=== PATIENT | female | born 1980 | race Two or more races ===

== ENCOUNTER 2019-06-09 17:40 | Inpatient (IN) | payer OTHER ==
[~2019-06-09] VITALS: Ht 157.5 cm; Wt 61.1 kg
[2019-06-09] MEDS ORDERED: SODIUM CHLORIDE 0.9% 1,000 ML IVB ONE (17:48)
[2019-06-09 18:15] LABS: Basophils # (auto) 0.1 10 ^3/uL (0-0.2); Basophils % (auto) 0.6 % (0.0-2.0); Eosinophils # (auto) 0 10 ^3/uL (0-0.8); Eosinophils % (auto) 0.2 % (0.0-7.0); Hematocrit 29.5 % (36.0-46.0); Hemoglobin 9.8 g/dL (12.2-16.2); Lymphocytes # (auto) 1.9 10 ^3/uL (0.4-5.4); Lymphocytes % (auto) 18.5 % (10.0-50.0); Mean Corpuscular Hemoglobin 28.8 pg (28.0-32.0); Mean Corpuscular Hgb Conc. 33.2 g/dL (32.0-36.0); Mean Corpuscular Volume 86.7 fL (80.0-100.0); Monocytes # (auto) 0.4 10 ^3/uL (0-1.3); Monocytes % (auto) 3.6 % (0.0-12.0); Neutrophils # (auto) 8.1 10 ^3/uL (1.6-8.6); Neutrophils % (auto) 77.1 % (37.0-80.0); Nucleated Red Blood Cells % 0.1 %; Platelet Count (auto) 373 10^3/uL (140-450); Red Blood Cells 3.41 10^6/uL (4.0-5.20); White Blood Cell 10.4 10^3/uL (4.4-10.8)
[2019-06-09] MEDS ORDERED: LABETALOL HCL 5 MG/ML 4ML SYRINGE IV ONE ×2 (18:15→20:00)
[2019-06-09 18:25] LABS: Albumin 1.9 g/dL (3.4-5.0); Anion Gap 15 (5-15); Blood Alcohol < 3.0 mg/dL (0-5); Blood Urea Nitrogen 17 mg/dL (7-18); Carbon Dioxide 20 mmol/L (21-32); Chloride 92 mmol/L (98-107); Magnesium 2.3 mg/dL (1.6-2.6); Potassium 3.3 mmol/L (3.5-5.1); Sodium 127 mmol/L (136-145)
[2019-06-09 18:29] LABS: INR 0.95 (0.9-1.15); Partial Thromboplastin Time 24.2 sec (23.64-32.05)
[2019-06-09 18:33] LABS: Alanine Aminotransferase 17 U/L (13-56); Alkaline Phosphatase 193 U/L (45-117); Aspartate Aminotransferase 18 U/L (15-37); BUN/Creatinine Ratio 10.4; Bilirubin, Total 0.3 mg/dL (0.2-1.0); GFR African American 45 mL/min; GFR Non-African American 37 mL/min; Total Protein 6.8 g/dL (6.4-8.2)
[2019-06-09 18:38] LABS: Glucose 811 mg/dL (74-106)
[2019-06-09 18:40] LABS: Urine Bacteria FEW /hpf (None Seen); Urine Blood TRACE /uL (Negative); Urine Specific Gravity 1.024 (1.001-1.035); Urine WBC 1 /hpf (0 - 5)
[2019-06-09 18:42] LABS: Alcohol, Urine < 3.0 mg/dL (0-5); Amphetamine Screen, Urine NEGATIVE (NEGATIVE); Barbiturate Scree,Urine NEGATIVE (NEGATIVE); Benzodiazephine Screen, Urine NEGATIVE (NEGATIVE); Cannabinoid Screen, Urine NEGATIVE (NEGATIVE); Cocaine Screen, Urine NEGATIVE (NEGATIVE); Opiate Scree,Urine NEGATIVE (NEGATIVE); Phencyclidine Screen, Urine NEGATIVE (NEGATIVE)
[2019-06-09 18:57] LABS: Lactic Acid w/Reflex 3.9 mmol/L (0.4-2.0)
[2019-06-09] MEDS ORDERED: InsuLIN REG 1unit/0.01ml Soln (100units/ml) IV ONE (19:00)
[2019-06-09] MEDS ORDERED: SODIUM CHLORIDE 0.9% 2,000 ML IV ONE (19:45)
[2019-06-09] MEDS ORDERED: cefTRIAXone 1GM/50ML D5W 50 ML IV ONE (19:45)
[2019-06-09] MEDS ORDERED: SODIUM CHLORIDE 0.9% 1,000 ML IV SCH ×2 (21:28→21:31)
[2019-06-09] MEDS ORDERED: DEXTROSE (50%) 50ML SYRG IV PRN ×2 (21:30→21:45)
[2019-06-09] MEDS ORDERED: TEMAZEPAM 15 MG CAP PO PRN (21:30)
[2019-06-09] MEDS ORDERED: cloNIDine HCL 0.1 MG TAB PO PRN (21:30)
[2019-06-09] MEDS ORDERED: POTASSIUM CHL 20MEQ/100ML 100 ML IV ONE (21:30)
[2019-06-09] MEDS ORDERED: NITROGLYCERIN 0.4 MG SL TAB SL PRN (21:30)
[2019-06-09] MEDS ORDERED: ONDANSETRON HCL 4 MG/2 ML VIAL IV PRN (21:30)
[2019-06-09] MEDS ORDERED: MORPHINE SULF INJ 2 MG/ML SYRINGE 1ML IV PRN (21:30)
[2019-06-09] MEDS ORDERED: InsuLIN R (HUMAN) 100 UNITS in SODIUM CHL 0.9% 99 ML IV SCH (21:31)
[2019-06-09] MEDS ORDERED: AZITHROMYCIN 500MG/D5WorNS 250ml IV SCH (22:00)
[2019-06-09] MEDS ORDERED: ACCU-CHEK COMFORT CURVE STRIP VI SCH (22:30)
[2019-06-09] MEDS: FAMOTIDINE 20 MG TAB PO SCH (23:00)
[2019-06-10] VITALS (7 sets, daily range): BP systolic 117–157; BP diastolic 70–95
[2019-06-10] MEDS: ACCU-CHEK COMFORT CURVE STRIP VI SCH ×7 (00:05→23:41)
--- NOTE | 2019-06-10 00:30 | NUR ---
Telemetry admit from ER COLETT[place] admitted to Telemetry unit. Patient oriented to ASAD DAMICO, RN primary RN, unit, room, bed, and unit policies regarding patient care and visiting hours. Patient now on continuous telemetry monitoring, tele box # 3 and telemetry reading on arrival to unit is sinus rhythm at 99 beats per minute. Patient weighed by bedscale and encouraged to call if they need something. All questions and concerns addressed, patient verbalized understanding. Bed in lowest locked position, side rails up x2, call light within reach. Will round every hour and as needed and continue to monitor.
[2019-06-10] MEDS: InsuLIN REG 1unit/0.01ml Soln (100units/ml) SC SCH ×7 (00:45→23:42)
[2019-06-10] MEDS ORDERED: SODIUM CHLORIDE 0.9% 1,000 ML IV SCH ×2 (01:31→03:31)
[2019-06-10] MEDS ORDERED: LISI40TA11 PO (02:09)
[2019-06-10] MEDS ORDERED: INSU1INJ27 SC (02:09)
--- NOTE | 2019-06-10 02:30 | NUR ---
Unable to obtain all ordered labs. Called lab, firestopper technician verbalized understanding. Will continue care.
[2019-06-10 03:02] LABS: Basophils # (auto) 0 10 ^3/uL (0-0.2); Basophils % (auto) 0.2 % (0.0-2.0); Eosinophils # (auto) 0 10 ^3/uL (0-0.8); Hematocrit 25.1 % (36.0-46.0); Hemoglobin 8.4 g/dL (12.2-16.2); Lymphocytes % (auto) 6.3 % (10.0-50.0); Mean Corpuscular Hemoglobin 28.4 pg (28.0-32.0); Mean Corpuscular Hgb Conc. 33.5 g/dL (32.0-36.0); Mean Corpuscular Volume 84.8 fL (80.0-100.0); Monocytes # (auto) 0.9 10 ^3/uL (0-1.3); Monocytes % (auto) 5.6 % (0.0-12.0); Neutrophils # (auto) 13.6 10 ^3/uL (1.6-8.6); Neutrophils % (auto) 87.9 % (37.0-80.0); Platelet Count (auto) 278 10^3/uL (140-450); Red Blood Cells 2.96 10^6/uL (4.0-5.20); White Blood Cell 15.5 10^3/uL (4.4-10.8)
[2019-06-10 03:17] LABS: Albumin 1.4 g/dL (3.4-5.0); BUN/Creatinine Ratio 13.3; Calcium 6.9 mg/dL (8.5-10.1); Potassium 3.1 mmol/L (3.5-5.1)
[2019-06-10 03:20] LABS: Bilirubin, Total 0.2 mg/dL (0.2-1.0); Total Protein 5.3 g/dL (6.4-8.2)
[2019-06-10 03:47] LABS: Magnesium 1.6 mg/dL (1.6-2.6)
[2019-06-10 03:56] LABS: CRP High Sensitivity 1.53 mg/dL (< 0.3)
--- NOTE | 2019-06-10 07:00 | NUR ---
Closing Note Patient lying in bed, eyes closed, respirations even and unlabored, appears asleep. Patient awakens to name and touch. Bed in lowest locked position, side rails up x2, call light within reach. Care endorsed to dayshift RN.
--- NOTE | 2019-06-10 07:00 | NUR ---
Potassium 3.1, regional operations director hospitalist hong, awaiting call back at this time. Addendum: 06/10/19 at 0712 by ASAD DAMICO RN RN ADDITION: Received return call from regional operations director hospitalist Ned Rosales NP, new order received for 40 mEq of Potassium PO one time dose. Order read back and verified, will implement as ordered and continue.
[2019-06-10] MEDS ORDERED: SOD CHL 0.9%/ KCL 20MEQ 1,000 ML IV SCH (07:30)
[2019-06-10] MEDS ORDERED: CALCIUM GLUC 4.65meq/50ml D5AE 50 ML IV ONE (07:30)
--- NOTE | 2019-06-10 07:30 | NUR ---
Opening Shift Note Assumed care of patient, awake and alert. No S/S of distress/SOB or pain. Bed in lowest and locked position with side rails up x2 and call light in reach. Instructed on POC and to call for assist PRN, will continue to monitor for changes Q1hr and PRN.
[2019-06-10] MEDS: FAMOTIDINE 20 MG TAB PO SCH ×2 (09:00→21:53)
[2019-06-10] MEDS ORDERED: POTASSIUM CHL 20 Meq TABLET PO ONE (09:00)
[2019-06-10] MEDS: LISINOPRIL 20 MG TAB PO SCH (09:01)
[2019-06-10] MEDS ORDERED: CHOLECALCIFEROL (VITD3) 1,000UNIT=25mCg TAB PO SCH (10:00)
[2019-06-10] MEDS ORDERED: ZINC SULFATE 220mg CAP or TAB PO SCH (10:00)
[2019-06-10] MEDS ORDERED: ASCORBIC ACID 1,000 MG TAB PO SCH (10:00)
--- NOTE | 2019-06-10 11:00 | NUR ---
PATIENT REQUESTING MEDICATION FOR PAIN. PATIENT STATED THAT SHE IS HAVING A "HEAD ACHE" RATED AT A 7/10. RN OFFERED NON-PHARMACOLOGICAL TREATMENT AND ALSO NOTIFIED THE PATIENT THAT THE ACETAMINOPHEN IS FOR PAIN RATED AT 1-3. PATIENT DENIED NON-PHARMACOLOGICAL TREATMENT AND STATED "THE TYLENOL SHOULD BE FINE FOR MY HEAD ACHE".
[2019-06-10] MEDS: ACETAMINOPHEN 325 MG TAB PO PRN ×3 (11:11→21:54)
--- NOTE | 2019-06-10 11:20 | NUR ---
CALLED AND NOTIFIED SENIOR ORACLE APPLICATIONS DEVELOPER, MARTINA, OF PATIENT NEGATIVE COVID RESULTS. CHARGE AWARE. THIS RN TO CALL MD AND NOTIFY MD.
--- NOTE | 2019-06-10 11:24 | NUR ---
PAGED DR. ESPINO REGARDING COVID-19 RESULTS.
--- NOTE | 2019-06-10 11:55 | NUR ---
RECEIVED CALL BACK FROM DR. ESPINO. RN UPDATED DR. ESPINO ON PATIENTS RESULTS. MD AWARE. PATIENT TO BE TRANSFERRED TO FLOOR.
--- NOTE | 2019-06-10 12:20 | NUR ---
REPORT GIVEN. RN GAVE REPORT TO RECEIVING MARKO RAMESH.
--- NOTE | 2019-06-10 12:50 | NUR ---
PATIENT TRANSFERRED TO ROOM 221A. PATIENT TRANSFERRED VIA WHEEL CHAIR WITH STAFF. NO S/S OF DISTRESS OR SOB AT THIS TIME. PATIENT TOOK ALL PERSONAL BELONGINGS.
--- NOTE | 2019-06-10 12:51 | NUR ---
Received patient to Room 221A. Patient is alert and oriented. Patient has no complaints at this time. Call light in reach. Will continue to monitor.
[2019-06-10] MEDS ORDERED: LORazepam 2MG/ML-1ML VIAL IV PRN (14:30)
[2019-06-10] MEDS ORDERED: amLODIPine BESYLATE 5 MG TAB PO ONE (19:15)
[2019-06-10] MEDS ORDERED: cefTRIAXone 1GM/50ML D5W 50 ML IV SCH (21:00)
[2019-06-10] MEDS: METOPROLOL TARTRATE 50 MG TAB PO SCH (21:52)
[2019-06-10] MEDS: INSULIN LANTUS (GLARGINE) 1 /0.01ml (100units/ml) SC SCH (21:53)
--- NOTE | 2019-06-10 21:54 | NUR ---
pain pt complaining of a headache 3/10. Tylenol given and warm pack for her sinuses.
[2019-06-10] MEDS ORDERED: AZITHROMYCIN 500MG/ 250ML 250 ML IV SCH (22:00)
[2019-06-10] MEDS ORDERED: ATORVASTATIN 20 MG TAB PO SCH (22:00)
[2019-06-11] MEDS: ACCU-CHEK COMFORT CURVE STRIP VI SCH ×4 (03:44→16:55)
[2019-06-11] MEDS: InsuLIN REG 1unit/0.01ml Soln (100units/ml) SC SCH ×4 (03:45→16:59)
[2019-06-11 05:00] VITALS: BP 111/69
[2019-06-11] MEDS: INSULIN LANTUS (GLARGINE) 1 /0.01ml (100units/ml) SC SCH (06:54)
--- NOTE | 2019-06-11 07:20 | NUR ---
Opening Shift Note Assumed care of patient, awake and alert. No S/S of distress/SOB or pain. Updated on POC and instructed to call for assistance as needed, patient verbalized understanding. Bed locked in lowest position with side rails up x2 and call light in reach. Will continue to monitor for changes Q1hr and PRN.
[2019-06-11 09:00] VITALS: BP 126/78
[2019-06-11] MEDS: FAMOTIDINE 20 MG TAB PO SCH (09:46)
[2019-06-11] MEDS: METOPROLOL TARTRATE 50 MG TAB PO SCH (09:47)
[2019-06-11] MEDS: LISINOPRIL 20 MG TAB PO SCH (09:47)
[2019-06-11] MEDS ORDERED: amLODIPine BESYLATE 5 MG TAB PO SCH (10:00)
[2019-06-11 12:30] VITALS: BP 141/81
[2019-06-11 12:45] LABS: Basophils # (auto) 0.1 10 ^3/uL (0-0.2); Basophils % (auto) 0.5 % (0.0-2.0); Eosinophils # (auto) 0.1 10 ^3/uL (0-0.8); Eosinophils % (auto) 0.8 % (0.0-7.0); Hematocrit 26.6 % (36.0-46.0); Lymphocytes # (auto) 1.2 10 ^3/uL (0.4-5.4); Lymphocytes % (auto) 9.2 % (10.0-50.0); Mean Corpuscular Hemoglobin 29.2 pg (28.0-32.0); Mean Corpuscular Volume 86.1 fL (80.0-100.0); Monocytes # (auto) 0.8 10 ^3/uL (0-1.3); Neutrophils # (auto) 10.6 10 ^3/uL (1.6-8.6); Neutrophils % (auto) 83.5 % (37.0-80.0); Platelet Count (auto) 315 10^3/uL (140-450); Red Blood Cells 3.09 10^6/uL (4.0-5.20); Red Cell Distribution Width 14.6 % (11.8-14.3); White Blood Cell 12.7 10^3/uL (4.4-10.8)
[2019-06-11 13:08] LABS: Albumin 1.3 g/dL (3.4-5.0); Calcium 7.6 mg/dL (8.5-10.1); Potassium 4.1 mmol/L (3.5-5.1)
[2019-06-11 13:11] LABS: Bilirubin, Total 0.2 mg/dL (0.2-1.0); Total Protein 5.4 g/dL (6.4-8.2)
[2019-06-11 14:17] LABS: % Iron Saturation 5.1 % (15-50)
[2019-06-11] MEDS ORDERED: ROSU5TAB5 PO (15:34)
[2019-06-11] MEDS ORDERED: INSU70IN3 SC (15:36)
[2019-06-11] MEDS ORDERED: HCTZ 25 MG TAB PO ONE (16:15)
[2019-06-11 17:16] VITALS: BP 129/78
[2019-06-11] MEDS ORDERED: FERROUS SULFATE 325 MG TAB PO SCH (18:00)
--- NOTE | 2019-06-11 19:33 | NUR ---
SPOKE WITH [facility] PATIENT GOING TO [facility] CHEMISTRY LABORATORY TECHNICIAN AT 2100. ROOM 427, REPORT TO BE CALLED TO [phone].
--- NOTE | 2019-06-11 21:07 | NUR ---
PATIENT OFF FLOOR TRANSFERRED TO [facility] REPORT GIVEN TO MATTHEW RAMESH [phone] ALL BELONGINGS WITH PATIENT. RADIOLOGY CD WITH PATIENT. DC PAPERWORK WITH PATIENT. WAS NOTIFIED OF TRANSFER BY PATIENT. AWARE OF [facility] ADDRESS AND ROOM NUMBER. NO S/SX OF DISTRESS, SOB OR PAIN.
--- NOTE | 2019-06-12 09:20 | NUR ---
provider relations specialist 06/11/2019 Per consult transfer to [place]. No call or page on this patient. Patient transferred to [place] by bedside RN. Addendum: 06/12/19 at 0921 by Kristen MIRANDA Amended: Links added.
[2019-06-12] MEDS ORDERED: LISINOPRIL 20 MG TAB PO SCH (10:00)
[2019-06-12] MEDS ORDERED: HCTZ 25 MG TAB PO SCH (10:00)
== END 2019-06-11 21:07 | disposition short-term general hospital (02) | DRG 871 ==
LOC: ER 17:40 → EDBD 17:40 → TELE 17:41 → TELE-EAST 17:41 → UNDOADMIN 17:41 → TELE-CENTR 06-10 12:51
PROVIDERS: ADMIT Nurse Practitioner; ATTEND Internal Medicine Nephrology
DX: A41.9 Sepsis, unspecified organism (principal); G93.41 Metabolic encephalopathy; J15.4 Pneumonia due to other streptococci; E11.10 Type 2 diabetes mellitus with ketoacidosis without coma; E87.1 Hypo-osmolality and hyponatremia; N17.9 Acute kidney failure, unspecified; R65.20 Severe sepsis without septic shock; G40.409 Other generalized epilepsy and epileptic syndromes, not intractable, without status epilepticus; E87.6 Hypokalemia; N18.3 Chronic kidney disease, stage 3 (moderate); I12.9 Hypertensive chronic kidney disease with stage 1 through stage 4 chronic kidney disease, or unspecified chronic kidney disease; D64.9 Anemia, unspecified; E11.22 Type 2 diabetes mellitus with diabetic chronic kidney disease; E78.5 Hyperlipidemia, unspecified; Z83.3 Family history of diabetes mellitus; Z82.49 Family history of ischemic heart disease and other diseases of the circulatory system; Z03.818 Encounter for observation for suspected exposure to other biological agents ruled out; Z79.899 Other long term (current) drug therapy
CPT/HCPCS: 36415; 36600; 70450; 70551; 71045; 80053; 80307; 80320; 81001; 82728; 82805; 82962; 83036; 83540; 83550; 83605; 83615; 83735; 84443; 84484; 84702; 85025; 85379; 85610; 85730; 86141; 87040; 87804; 87880; 93005; 93306; 99291; G0378; J0610; J0696; J1815; J3480; J3490